=== PATIENT | female | born 1995 | race Two or more races ===

== ENCOUNTER 2016-02-28 00:10 | Observation (INO) | payer MEDICAID | END 2016-02-28 02:35 | disposition home or self-care (01) | DRG 566 | LOC: LDRP 00:10 | PROVIDERS: ADMIT Obstetrics & Gynecology; ATTEND Obstetrics & Gynecology | DX: O48.0 Post-term pregnancy (principal); O26.893 Other specified pregnancy related conditions, third trimester; R10.2 Pelvic and perineal pain; Z3A.40 40 weeks gestation of pregnancy | CPT/HCPCS: 59025; 76818; 81002; G0378 ==

== ENCOUNTER 2016-03-01 10:25 | Inpatient (IN) | payer MEDICAID ==
[~2016-03-01] VITALS: Ht 152.4 cm; Wt 62.1 kg
[2016-03-01] MEDS ORDERED: LACT. RINGERS/OXYTOCIN 20UNITS 1,000 ML IV SCH (10:36)
[2016-03-01] MEDS ORDERED: WITCH HAZEL-GLYCERIN PAD TOP PRN (10:45)
[2016-03-01] MEDS ORDERED: PHISODERM TOP SOLN 240ML BTL TOP PRN (10:45)
[2016-03-01] MEDS ORDERED: NALBUPHINE HCL 10 MG/1ml INJECTION IV PRN (10:45)
[2016-03-01] MEDS ORDERED: PROMETHAZINE HCL 25 MG/ML 1ML IV PRN (10:45)
[2016-03-01] MEDS ORDERED: LIDOCAINE 2%HCL (LOCAL ANESTH.) INJ 20ML MDV IJ ONE (10:45)
[2016-03-01] MEDS ORDERED: PENICILLIN G POT 5MIL/D5 50ML 50 ML IV ONE (10:45)
[2016-03-01] MEDS ORDERED: DERMOPLAST 60ML BOTTLE TOP PRN (10:45)
[2016-03-01 11:10] LABS: Urine RBC None Seen /hpf (0 - 4)
[2016-03-01 11:15] LABS: Basophils # (auto) 0 uL; Basophils % (auto) 0.2 % (0.0-2.0); Eosinophils # (auto) 0.1 uL; Eosinophils % (auto) 0.8 % (0.0-7.0); Hematocrit 35.2 % (36.0-46.0); Hemoglobin 11.4 g/dL (12.2-16.2); Lymphocytes # (auto) 2.1 uL; Lymphocytes % (auto) 24.3 % (10.0-50.0); Mean Corpuscular Hemoglobin 28.9 pg (28.0-32.0); Mean Corpuscular Hgb Conc. 32.5 g/dL (32.0-36.0); Mean Corpuscular Volume 89.1 fL (80.0-100.0); Mean Platelet Volume 7.7 fL (7.4-10.4); Monocytes # (auto) 0.7 uL; Neutrophils # (auto) 5.9 uL; Neutrophils % (auto) 66.7 % (37.0-80.0); Platelet Count (auto) 260 10^3/uL (140-450); Red Cell Distribution Width 12.7 % (11.6-16.0); White Blood Cell 8.8 10^3/uL (4.4-10.8)
[2016-03-01 11:29] LABS: Urine Bilirubin Negative (Negative); Urine Blood Negative /uL (Negative); Urine Color Yellow (Yellow); Urine Glucose Normal (Normal); Urine Ketone Negative (Negative); Urine Mucus FEW (None Seen); Urine Nitrite Negative (Negative); Urine Squamous Epithelial Cell FEW /hpf (<5); Urine Urobilinogen Normal (Negative); Urine pH 7.5 (5.0-8.0)
[2016-03-01] MEDS: ACCU-CHEK COMFORT CURVE STRIP VI SCH ×6 (11:41→22:00)
[2016-03-01 11:45] LABS: Albumin 3.1 g/dL (3.4-5.0); BUN/Creatinine Ratio 8.2; Bilirubin, Total 0.5 mg/dL (0.2-1.0); Calcium 9.4 mg/dL (8.5-10.1); Potassium 3.9 mmol/L (3.5-5.1); Total Protein 7.1 g/dL (6.4-8.2)
[2016-03-01 11:58] LABS: INR 0.97 (0.9-1.15); Partial Thromboplastin Time 24.7 sec (22.64-33.71)
[2016-03-01] MEDS: PENICILLIN G POTASSIUM 2,500,000 UNITS in D5W 5% 50 ML IV SCH ×3 (15:29→23:51)
[2016-03-01] MEDS: LACTATED RINGER'S 1,000 ML IV SCH (18:36)
[2016-03-02] MEDS: ACCU-CHEK COMFORT CURVE STRIP VI SCH ×4 (02:00→06:00)
[2016-03-02] MEDS: LACTATED RINGER'S 1,000 ML IV SCH ×4 (02:36→22:10)
[2016-03-02] MEDS: PENICILLIN G POTASSIUM 2,500,000 UNITS in D5W 5% 50 ML IV SCH ×3 (03:50→12:00)
[2016-03-02] MEDS ORDERED: BUTORPHANOL TARTRATE 2 MG/1 ML VIAL ONE (04:33)
[2016-03-02] MEDS: PROMETHAZINE HCL 25 MG/ML 1ML IV PRN ×2 (04:43→16:30)
[2016-03-02] MEDS ORDERED: BUTORPHANOL TARTRATE 2 MG/1 ML VIAL IM ONE (04:45)
[2016-03-02] MEDS ORDERED: TERBUTALINE SULFATE 1 MG/ML 1ML VIAL SC PRN (05:15)
[2016-03-02] MEDS ORDERED: LACT. RINGERS/OXYTOCIN 20UNITS 1,000 ML IV SCH (05:15)
[2016-03-02] MEDS ORDERED: LIDOCAINE HCL 2 %PF INJ 10ML AMP IJ ONE ×2 (07:00→12:52)
[2016-03-02] MEDS ORDERED: NALOXONE HCL 0.4 MG/ML VIAL IV ONE ×2 (07:00→09:15)
[2016-03-02] MEDS ORDERED: fentaNYL W ROPIVACAINE 150 ML EPI SCH ×2 (07:00→09:15)
[2016-03-02] MEDS ORDERED: fentaNYL CITRATE 100 MCG/2 ML VL IV ONE (07:00)
[2016-03-02] MEDS ORDERED: ePHEDrine SULFATE 50 MG/ML AMP IV ONE ×2 (07:00→09:15)
[2016-03-02] MEDS ORDERED: SODIUM BICARBONATE INFANT SYR 10 ML SYRG IV ONE (12:52)
[2016-03-02] MEDS ORDERED: OXYTOCIN 10 UNIT/ML 10ML VIAL ONE (12:52)
[2016-03-02] MEDS ORDERED: ceFAZolin 1GM VL ONE (12:52)
[2016-03-02] MEDS ORDERED: SODIUM CHLORIDE LOCK 20 ML ONE (12:54)
[2016-03-02] MEDS ORDERED: fentaNYL CITRATE 100 MCG/2 ML VL ONE (12:54)
[2016-03-02] MEDS ORDERED: ePHEDrine SULFATE 50 MG/ML AMP ONE (12:54)
[2016-03-02] MEDS ORDERED: MIDAZOLAM HCL 1MG/1ML-2 ML VIAL ONE (12:54)
[2016-03-02] MEDS ORDERED: MORPHINE SULF(PF) 0.5MG/ML 10ML VIAL ONE (12:54)
[2016-03-02] MEDS ORDERED: NALOXONE HCL 0.4 MG/ML VIAL IV PRN (14:30)
[2016-03-02] MEDS ORDERED: PROMETHAZINE HCL 25 MG/ML 1ML IM ONE (14:30)
[2016-03-02] MEDS ORDERED: ACCU-CHEK COMFORT CURVE STRIP VI ONE (14:30)
[2016-03-02] MEDS ORDERED: HYDROmorphone HCL 2 MG/ML VL IV PRN ×2 (14:30)
[2016-03-02] MEDS ORDERED: KETOROLAC TROMETH 30 MG/ML 1ML VIAL IV ONE (14:30)
[2016-03-02] MEDS ORDERED: diphenhdrAMINE HCL 50 MG/1 ML VL IV PRN (14:30)
[2016-03-02] MEDS ORDERED: ONDANSETRON HCL 4 MG/2 ML VIAL IV PRN (14:30)
[2016-03-02] MEDS ORDERED: OXYTOCIN 10UNIT/ML 1ML VIAL ONE (14:58)
[2016-03-02 15:40] VITALS: BP 132/77
[2016-03-02 19:00] VITALS: BP 120/77
[2016-03-02 20:00] VITALS: BP 118/68
[2016-03-02 21:00] VITALS: BP 114/64
[2016-03-02 22:00] VITALS: BP 118/64
[2016-03-02] MEDS: ceFAZolin 1GM/50ML D5W 50 ML IV SCH (22:10)
[2016-03-02 23:30] VITALS: BP 108/64
[2016-03-03] VITALS (8 sets, daily range): BP systolic 94–108; BP diastolic 49–64
[2016-03-03] MEDS: KETOROLAC TROMETH 30 MG/ML 1ML VIAL IV SCH ×2 (02:14→08:40)
[2016-03-03] MEDS: LACTATED RINGER'S 1,000 ML IV SCH ×2 (02:36→06:17)
[2016-03-03] MEDS: ceFAZolin 1GM/50ML D5W 50 ML IV SCH ×2 (05:40→14:00)
[2016-03-03 07:21] LABS: Basophils # (auto) 0 uL; Basophils % (auto) 0.2 % (0.0-2.0); Eosinophils # (auto) 0 uL; Eosinophils % (auto) 0.3 % (0.0-7.0); Hematocrit 27.2 % (36.0-46.0); Hemoglobin 8.8 g/dL (12.2-16.2); Lymphocytes # (auto) 1.9 uL; Lymphocytes % (auto) 15.8 % (10.0-50.0); Mean Corpuscular Hgb Conc. 32.5 g/dL (32.0-36.0); Mean Corpuscular Volume 89.1 fL (80.0-100.0); Monocytes # (auto) 0.9 uL; Monocytes % (auto) 7.7 % (0.0-12.0); Neutrophils # (auto) 9.1 uL; Platelet Count (auto) 192 10^3/uL (140-450); Red Cell Distribution Width 12.6 % (11.6-16.0)
[2016-03-03] MEDS: IBUPROFEN 800 MG TAB PO PRN (15:05)
[2016-03-03] MEDS ORDERED: BISACODYL 10 MG RECT SUPP PR PRN (15:15)
[2016-03-03] MEDS: HYDROcodone-ACET 5/325MG TAB PO PRN ×2 (16:45→22:25)
[2016-03-03] MEDS: SIMETHICONE 80 MG CHEWABLE TABLET PO SCH ×2 (17:58→21:52)
[2016-03-03] MEDS: DOCUSATE SOD 100 MG CAP PO SCH (21:52)
[2016-03-03] MEDS: FERROUS SULFATE 325 MG TAB PO SCH (21:52)
[2016-03-04] MEDS: IBUPROFEN 800 MG TAB PO PRN ×3 (00:17→18:56)
[2016-03-04 03:15] VITALS: BP 105/50
[2016-03-04] MEDS: SIMETHICONE 80 MG CHEWABLE TABLET PO SCH ×4 (05:29→22:30)
[2016-03-04] MEDS: HYDROcodone-ACET 5/325MG TAB PO PRN ×4 (06:01→22:37)
[2016-03-04 08:00] VITALS: BP 110/63
[2016-03-04] MEDS: FERROUS SULFATE 325 MG TAB PO SCH ×2 (10:00→22:30)
[2016-03-04] MEDS: DOCUSATE SOD 100 MG CAP PO SCH ×2 (10:00→22:30)
[2016-03-04] MEDS ORDERED: DOCUSATE CALCIUM 240 MG CAP PO SCH (10:00)
[2016-03-04 12:00] VITALS: BP 104/70
[2016-03-04 16:00] VITALS: BP 102/53
[2016-03-04 18:30] VITALS: BP 114/61
[2016-03-04 22:45] VITALS: BP 118/58
[2016-03-05 03:30] VITALS: BP 107/46
[2016-03-05 08:00] VITALS: BP 104/52
== END 2016-03-05 11:40 | disposition home or self-care (01) | DRG 540 ==
LOC: LDRP 10:25
PROVIDERS: ADMIT Specialist; ATTEND Specialist
PROC: 3E033VJ Introduction of Other Hormone into Peripheral Vein, Percutaneous Approach (ICD-10-PCS; 2016-03-02)
PROC: 10D00Z1 Extraction of Products of Conception, Low, Open Approach (ICD-10-PCS; principal; 2016-03-02 13:20)
PROC: 10907ZC Drainage of Amniotic Fluid, Therapeutic from Products of Conception, Via Natural or Artificial Opening (ICD-10-PCS; 2016-03-05)
DX: O48.0 Post-term pregnancy (principal); O34.33 Maternal care for cervical incompetence, third trimester; O24.420 Gestational diabetes mellitus in childbirth, diet controlled; O61.9 Failed induction of labor, unspecified; O76 Abnormality in fetal heart rate and rhythm complicating labor and delivery; O62.0 Primary inadequate contractions; O99.824 Streptococcus B carrier state complicating childbirth; O62.1 Secondary uterine inertia; Z3A.40 40 weeks gestation of pregnancy; Z37.0 Single live birth
CPT/HCPCS: 36415; 59025; 62282; 80053; 81001; 81002; 82948; 82962; 85025; 85049; 85610; 85730; 86850; 86900; 86901; 96361; 96365; 96366; 96374; J0690; J1885; J2250; J2540; J2590; J3010; J7060

== ENCOUNTER 2018-03-22 12:11 | Emergency (ER) | payer MEDICAID ==
[2018-03-22 12:59] VITALS: BP 109/58
== END 2018-03-22 13:55 | disposition home or self-care (01) ==
LOC: ER 12:18
DX: O9A.211 Injury, poisoning and certain other consequences of external causes complicating pregnancy, first trimester (principal); R10.30 Lower abdominal pain, unspecified; V49.49XA Driver injured in collision with other motor vehicles in traffic accident, initial encounter; Y93.89 Activity, other specified; Y92.89 Other specified places as the place of occurrence of the external cause; Y99.8 Other external cause status; Z3A.09 9 weeks gestation of pregnancy
CPT/HCPCS: 76801

== ENCOUNTER → 2018-04-19 | Day surgery (SDC) | payer MEDICAID ==
[~2018-04-19] VITALS: Ht 152.4 cm; Wt 57.2 kg
[~2018-04-19] MED LIST: DEXAMETHASONE SOD PHOS 10MG/1ML VIAL INJ ONE; HYDROmorphone HCL 2 MG/ML VL IV PRN; KETOROLAC TROMETH 30 MG/ML 1ML VIAL IV ONE; KETOROLAC TROMETH 30 MG/ML 1ML VIAL ONE; LABETALOL HCL 5 MG/ML 4ML SYRINGE IV PRN; LACTATED RINGER'S 1,000 ML IV SCH; MIDAZOLAM HCL 1MG/1ML-2 ML VIAL IV PRN; MIDAZOLAM HCL 1MG/1ML-2 ML VIAL ONE; MORPHINE SULFATE 4 MG/ML SYR/VIAL IV ONE; MORPHINE SULFATE 4 MG/ML SYR/VIAL IV PRN; ONDANSETRON HCL 4 MG/2 ML VIAL IV ONE; ONDANSETRON HCL 4 MG/2 ML VIAL IV PRN; OXYTOCIN 10UNIT/ML 1ML VIAL IV ONE; PROPOFOL 10 MG/ML 20 ML IV ONE; ceFAZolin 1GM/50ML 50 ML IV ONE; ePHEDrine SULFATE 50 MG/ML AMP IV PRN; fentaNYL CITRATE 100 MCG/2 ML VL ONE
[2018-04-19 08:53] VITALS: BP 132/68
== END | disposition home or self-care (01) ==
LOC: SUR 06:16
PROVIDERS: ATTEND Specialist
DX: O02.1 Missed abortion (principal); Z98.890 Other specified postprocedural states
CPT/HCPCS: 59820; J2590; J3010; 86850; 86900; 86901; J0690; J1100; J1885; J2250; J2704

== ENCOUNTER 2018-04-20 11:53 | Emergency (ER) | payer MEDICAID ==
[~2018-04-20] VITALS: Ht 152.4 cm; Wt 57.2 kg
[2018-04-20 13:04] LABS: Urine Bacteria NONE SEEN /hpf (None Seen); Urine Blood 2+ /uL (Negative); Urine Mucus FEW (None Seen); Urine Specific Gravity 1.015 (1.001-1.035); Urine WBC 8 /hpf (0 - 5)
[2018-04-20 15:12] LABS: Basophils # (auto) 0 uL; Basophils % (auto) 0.2 % (0.0-2.0); Eosinophils # (auto) 0 uL; Eosinophils % (auto) 0.3 % (0.0-7.0); Hematocrit 34.9 % (36.0-46.0); Hemoglobin 11.8 g/dL (12.2-16.2); Lymphocytes # (auto) 3.1 uL; Lymphocytes % (auto) 34.2 % (10.0-50.0); Mean Corpuscular Hemoglobin 30.5 pg (28.0-32.0); Mean Corpuscular Hgb Conc. 33.8 g/dL (32.0-36.0); Mean Corpuscular Volume 90.3 fL (80.0-100.0); Monocytes # (auto) 0.6 uL; Monocytes % (auto) 6.9 % (0.0-12.0); Neutrophils # (auto) 5.3 uL; Neutrophils % (auto) 58.4 % (37.0-80.0); Platelet Count (auto) 225 10^3/uL (140-450); Red Blood Cells 3.86 10^6/uL (4.0-5.20); Red Cell Distribution Width 12.8 % (11.8-14.3)
[2018-04-20 15:16] LABS: Albumin 3.3 g/dL (3.4-5.0); Anion Gap 6 (5-15); Blood Urea Nitrogen 5 mg/dL (7-18); Calcium 8.3 mg/dL (8.5-10.1); Carbon Dioxide 25 mmol/L (21-32); Chloride 108 mmol/L (98-107); Glucose 91 mg/dL (74-106); Potassium 3.7 mmol/L (3.5-5.1); Sodium 139 mmol/L (136-145)
[2018-04-20 15:21] LABS: Alanine Aminotransferase 21 U/L (13-56); Alkaline Phosphatase 67 U/L (45-117); Aspartate Aminotransferase 13 U/L (15-37); BUN/Creatinine Ratio 8.9; Bilirubin, Total 0.2 mg/dL (0.2-1.0); GFR African American 176 mL/min; GFR Non-African American 145 mL/min
[2018-04-20 15:57] VITALS: BP 115/72
== END 2018-04-20 15:40 | disposition home or self-care (01) ==
LOC: ER 12:01
DX: R07.89 Other chest pain (principal); N39.0 Urinary tract infection, site not specified; F17.210 Nicotine dependence, cigarettes, uncomplicated
CPT/HCPCS: 36415; 71046; 80053; 81001; 84484; 85025; 93005

== ENCOUNTER 2020-12-12 07:16 | Emergency (ER) | payer MEDICAID ==
[~2020-12-12] VITALS: Ht 165.1 cm; Wt 56.7 kg
[2020-12-12 07:55] LABS: Urine Bacteria NONE SEEN /hpf (None Seen); Urine Blood 2+ /uL (Negative); Urine Specific Gravity 1.016 (1.001-1.035); Urine WBC 2 /hpf (0 - 5)
[2020-12-12 09:54] VITALS: BP 139/58
[2020-12-12] MEDS ORDERED: ACETAMINOPHEN/CODEINE#3 (300/30mg) TAB PO ONE (10:00)
[2020-12-12] MEDS ORDERED: ONDANSETRON ODT 4 MG TAB PO ONE (10:00)
[2020-12-12 10:14] LABS: Basophils # (auto) 0 10 ^3/uL (0-0.2); Basophils % (auto) 0.1 % (0.0-2.0); Eosinophils # (auto) 0 10 ^3/uL (0-0.8); Hematocrit 40.4 % (36.0-46.0); Hemoglobin 13.9 g/dL (12.2-16.2); Lymphocytes # (auto) 0.6 10 ^3/uL (0.4-5.4); Lymphocytes % (auto) 4.8 % (10.0-50.0); Mean Corpuscular Hemoglobin 31.5 pg (28.0-32.0); Mean Corpuscular Hgb Conc. 34.3 g/dL (32.0-36.0); Mean Corpuscular Volume 91.7 fL (80.0-100.0); Monocytes # (auto) 0.7 10 ^3/uL (0-1.3); Monocytes % (auto) 5.5 % (0.0-12.0); Neutrophils # (auto) 12.1 10 ^3/uL (1.6-8.6); Neutrophils % (auto) 89.6 % (37.0-80.0); Red Cell Distribution Width 12.5 % (11.8-14.3); White Blood Cell 13.5 10^3/uL (4.4-10.8)
[2020-12-12 10:16] LABS: Potassium 4.1 mmol/L (3.5-5.1)
[2020-12-12 10:20] LABS: BUN/Creatinine Ratio 6.1; Bilirubin, Total 0.4 mg/dL (0.2-1.0); Total Protein 8.2 g/dL (6.4-8.2)
== END 2020-12-12 12:41 | disposition home or self-care (01) ==
LOC: ER 07:16
DX: N20.0 Calculus of kidney (principal); F12.10 Cannabis abuse, uncomplicated; Z32.02 Encounter for pregnancy test, result negative
CPT/HCPCS: 36415; 74176; 80053; 81001; 81025; 83690; 85025; 99284; Q0162

== ENCOUNTER 2021-01-17 09:39 | Emergency (ER) | payer MEDICAID ==
[~2021-01-17] VITALS: Ht 152.4 cm; Wt 53.5 kg
[2021-01-17 11:01] LABS: Basophils # (auto) 0 10 ^3/uL (0-0.2); Basophils % (auto) 0.3 % (0.0-2.0); Eosinophils # (auto) 0 10 ^3/uL (0-0.8); Eosinophils % (auto) 0.2 % (0.0-7.0); Hematocrit 38.9 % (36.0-46.0); Hemoglobin 13.1 g/dL (12.2-16.2); Lymphocytes # (auto) 1.9 10 ^3/uL (0.4-5.4); Lymphocytes % (auto) 14.3 % (10.0-50.0); Mean Corpuscular Hemoglobin 30.7 pg (28.0-32.0); Mean Corpuscular Hgb Conc. 33.8 g/dL (32.0-36.0); Monocytes # (auto) 1.4 10 ^3/uL (0-1.3); Monocytes % (auto) 10.3 % (0.0-12.0); Neutrophils # (auto) 9.8 10 ^3/uL (1.6-8.6); Neutrophils % (auto) 74.9 % (37.0-80.0); Red Blood Cells 4.27 10^6/uL (4.0-5.20); White Blood Cell 13.1 10^3/uL (4.4-10.8)
[2021-01-17 11:31] LABS: Albumin 3.8 g/dL (3.4-5.0); Calcium 8.9 mg/dL (8.5-10.1); Potassium 3.9 mmol/L (3.5-5.1)
[2021-01-17 11:45] LABS: BUN/Creatinine Ratio 7.6; Bilirubin, Total 0.5 mg/dL (0.2-1.0); Total Protein 8.5 g/dL (6.4-8.2)
[2021-01-17] MEDS ORDERED: SODIUM CHLORIDE 0.9% 1,000 ML IV ONE (12:30)
[2021-01-17 13:22] LABS: Urine Bacteria MOD /hpf (None Seen); Urine Blood 2+ /uL (Negative); Urine Hyaline Cast MOD /lpf (0 - 2); Urine Mucus FEW (None Seen); Urine Specific Gravity 1.016 (1.001-1.035); Urine WBC 22 /hpf (0 - 5)
[2021-01-17 14:09] VITALS: BP 122/68
== END 2021-01-17 14:12 | disposition home or self-care (01) ==
LOC: ER 09:39
DX: O26.891 Other specified pregnancy related conditions, first trimester (principal); R10.84 Generalized abdominal pain; R53.1 Weakness; O99.321 Drug use complicating pregnancy, first trimester; F12.10 Cannabis abuse, uncomplicated; Z3A.01 Less than 8 weeks gestation of pregnancy
CPT/HCPCS: 36415; 76705; 76801; 76817; 80053; 81001; 84702; 85025

== ENCOUNTER 2021-02-02 20:08 | Emergency (ER) | payer MEDICAID ==
[~2021-02-02] VITALS: Ht 152.4 cm; Wt 52.6 kg
[2021-02-02 20:40] LABS: Urine WBC None Seen /hpf (0 - 5)
[2021-02-02 20:49] LABS: Urine Bacteria FEW /hpf (None Seen); Urine Blood TRACE /uL (Negative); Urine Mucus FEW (None Seen); Urine Specific Gravity 1.008 (1.001-1.035)
[2021-02-02 21:32] LABS: Basophils # (auto) 0 10 ^3/uL (0-0.2); Basophils % (auto) 0.4 % (0.0-2.0); Eosinophils # (auto) 0 10 ^3/uL (0-0.8); Eosinophils % (auto) 0.6 % (0.0-7.0); Hematocrit 32.3 % (36.0-46.0); Hemoglobin 11.3 g/dL (12.2-16.2); Lymphocytes # (auto) 2.2 10 ^3/uL (0.4-5.4); Lymphocytes % (auto) 26.3 % (10.0-50.0); Mean Corpuscular Hemoglobin 31.1 pg (28.0-32.0); Mean Corpuscular Volume 88.7 fL (80.0-100.0); Monocytes # (auto) 0.7 10 ^3/uL (0-1.3); Monocytes % (auto) 7.9 % (0.0-12.0); Neutrophils # (auto) 5.3 10 ^3/uL (1.6-8.6); Neutrophils % (auto) 64.8 % (37.0-80.0); Nucleated Red Blood Cells % 0.1 %; Red Blood Cells 3.64 10^6/uL (4.0-5.20); Red Cell Distribution Width 13.3 % (11.8-14.3); White Blood Cell 8.2 10^3/uL (4.4-10.8)
[2021-02-02 21:49] LABS: Albumin 3.4 g/dL (3.4-5.0); BUN/Creatinine Ratio 8.6; Calcium 8.6 mg/dL (8.5-10.1); Potassium 3.9 mmol/L (3.5-5.1)
[2021-02-02 21:52] LABS: Bilirubin, Total 0.2 mg/dL (0.2-1.0); Total Protein 6.5 g/dL (6.4-8.2)
[2021-02-03 02:38] VITALS: BP 141/65
== END 2021-02-03 03:59 | disposition left against medical advice (07) ==
LOC: ER 20:08
DX: O20.8 Other hemorrhage in early pregnancy (principal); Z3A.01 Less than 8 weeks gestation of pregnancy
CPT/HCPCS: 36415; 76801; 80053; 81001; 84702; 85025

== ENCOUNTER 2021-05-13 13:20 | Observation (INO) | payer MEDICAID | END 2021-05-13 15:31 | disposition home or self-care (01) | LOC: LDRP 13:20 | PROVIDERS: ADMIT Obstetrics & Gynecology; ATTEND Obstetrics & Gynecology | DX: O26.892 Other specified pregnancy related conditions, second trimester (principal); R55 Syncope and collapse; R11.0 Nausea; Z3A.22 22 weeks gestation of pregnancy | CPT/HCPCS: 59025; 81002; 82948; 82962; 94760; G0378 ==

== ENCOUNTER 2021-07-28 08:21 | Inpatient (IN) | payer MEDICAID ==
[~2021-07-28] VITALS: Ht 152.4 cm; Wt 62.0 kg
[2021-07-28] MEDS ORDERED: SODIUM CHLORIDE 0.9% 1,000 ML IVB ONE (08:45)
[2021-07-28 09:03] LABS: Urine Bacteria FEW /hpf (None Seen); Urine Blood Negative /uL (Negative); Urine Mucus FEW (None Seen); Urine Specific Gravity 1.018 (1.001-1.035); Urine WBC 22 /hpf (0 - 5)
[2021-07-28 09:22] LABS: Basophils # (auto) 0.1 10 ^3/uL (0-0.2); Basophils % (auto) 1.5 % (0.0-2.0); Eosinophils # (auto) 0 10 ^3/uL (0-0.8); Hematocrit 30.5 % (36.0-46.0); Hemoglobin 10.8 g/dL (12.2-16.2); Lymphocytes # (auto) 0.8 10 ^3/uL (0.4-5.4); Lymphocytes % (auto) 7.9 % (10.0-50.0); Mean Corpuscular Hemoglobin 32.1 pg (28.0-32.0); Mean Corpuscular Hgb Conc. 35.4 g/dL (32.0-36.0); Mean Corpuscular Volume 90.7 fL (80.0-100.0); Monocytes % (auto) 10.2 % (0.0-12.0); Neutrophils # (auto) 7.8 10 ^3/uL (1.6-8.6); Neutrophils % (auto) 80.4 % (37.0-80.0); Red Blood Cells 3.37 10^6/uL (4.0-5.20); Red Cell Distribution Width 12.9 % (11.8-14.3); White Blood Cell 9.7 10^3/uL (4.4-10.8)
[2021-07-28 09:36] LABS: Albumin 2.7 g/dL (3.4-5.0); Calcium 8.5 mg/dL (8.5-10.1); Potassium 3.6 mmol/L (3.5-5.1)
[2021-07-28 09:40] LABS: Bilirubin, Total 0.4 mg/dL (0.2-1.0); Total Protein 6.6 g/dL (6.4-8.2)
[2021-07-28] MEDS ORDERED: ONDANSETRON HCL 4 MG/2 ML VIAL IV ONE ×2 (10:45→20:00)
[2021-07-28] MEDS ORDERED: ACETAMINOPHEN 325 MG TAB PO ONE (11:15)
[2021-07-28] MEDS ORDERED: ACETAMINOPHEN 325 MG TAB PO PRN (14:00)
[2021-07-28] MEDS ORDERED: ACETAMINOPHEN 500 MG TAB PO PRN (14:15)
[2021-07-28] MEDS: SODIUM CHLORIDE 0.9% 1,000 ML IV SCH (14:36)
[2021-07-28 15:08] VITALS: BP 107/59
[2021-07-28 15:27] LABS: Basophils # (auto) 0 10 ^3/uL (0-0.2); Basophils % (auto) 0.7 % (0.0-2.0); Eosinophils # (auto) 0 10 ^3/uL (0-0.8); Hematocrit 30.1 % (36.0-46.0); Hemoglobin 10.6 g/dL (12.2-16.2); Lymphocytes # (auto) 0.8 10 ^3/uL (0.4-5.4); Lymphocytes % (auto) 13.1 % (10.0-50.0); Mean Corpuscular Hemoglobin 32.4 pg (28.0-32.0); Mean Corpuscular Hgb Conc. 35.2 g/dL (32.0-36.0); Mean Corpuscular Volume 92.1 fL (80.0-100.0); Monocytes # (auto) 0.8 10 ^3/uL (0-1.3); Monocytes % (auto) 11.7 % (0.0-12.0); Neutrophils # (auto) 4.8 10 ^3/uL (1.6-8.6); Neutrophils % (auto) 74.5 % (37.0-80.0); Nucleated Red Blood Cells % 0.1 %; Red Blood Cells 3.26 10^6/uL (4.0-5.20); Red Cell Distribution Width 13.1 % (11.8-14.3); White Blood Cell 6.4 10^3/uL (4.4-10.8)
[2021-07-28 15:41] LABS: INR 1.03 (0.9-1.15); Partial Thromboplastin Time 21.9 sec (23.6-33.0)
[2021-07-28 15:42] LABS: Albumin 2.4 g/dL (3.4-5.0); Potassium 3.3 mmol/L (3.5-5.1)
[2021-07-28 15:50] LABS: BUN/Creatinine Ratio 8.2; Bilirubin, Total 0.5 mg/dL (0.2-1.0); CRP High Sensitivity 5.78 mg/dL (< 0.3); Total Protein 5.9 g/dL (6.4-8.2)
[2021-07-28 15:55] LABS: Thyroid Stimulating Hormone 0.53 uIU/mL (0.358-3.74)
[2021-07-28 17:43] LABS: Magnesium 1.8 mg/dL (1.6-2.6)
[2021-07-28 19:00] LABS: Phosphorus 0.4 mg/dL (2.5-4.90)
[2021-07-28] MEDS ORDERED: MAGNESIUM SULFATE 1GM/100ML 100 ML IV ONE (19:15)
[2021-07-28] MEDS ORDERED: POTASSIUM PHOSPHATE 44 MEQ in D5W 5% 250 ML IV ONE (19:15)
[2021-07-28] MEDS: BUDESONIDE (INHALATION) 180 MCG IH IN SCH (19:42)
[2021-07-28] MEDS ORDERED: ONDANSETRON HCL 4 MG/2 ML VIAL IV PRN (20:00)
[2021-07-28] MEDS ORDERED: FAMOTIDINE (10MG/ML) 2ML VL IV ONE (20:00)
[2021-07-28] MEDS: predniSONE 20 MG TAB PO SCH (21:28)
[2021-07-28] MEDS: ENOXAPARIN SOD 40 MG/0.4 ML SYRINGE SC SCH (21:29)
[2021-07-28] MEDS: ceFAZolin 1GM/50ML 50 ML IV SCH (21:31)
[2021-07-28 22:41] VITALS: BP 104/40
[2021-07-29 04:55] VITALS: BP 98/49
[2021-07-29] MEDS: ceFAZolin 1GM/50ML 50 ML IV SCH (05:20)
[2021-07-29] MEDS: SODIUM CHLORIDE 0.9% 1,000 ML IV SCH (06:40)
[2021-07-29] MEDS: BUDESONIDE (INHALATION) 180 MCG IH IN SCH (06:55)
[2021-07-29 07:01] LABS: Hematocrit 27.1 % (36.0-46.0); Hemoglobin 9.7 g/dL (12.2-16.2); Mean Corpuscular Hemoglobin 32.8 pg (28.0-32.0); Mean Corpuscular Hgb Conc. 35.8 g/dL (32.0-36.0); Mean Corpuscular Volume 91.5 fL (80.0-100.0); Red Blood Cells 2.96 10^6/uL (4.0-5.20); Red Cell Distribution Width 13.2 % (11.8-14.3); White Blood Cell 5.3 10^3/uL (4.4-10.8)
[2021-07-29 07:04] LABS: Basophils % (manual) 0 (0.0-2.0); Blast Cells 0; Eosinophils % (manual) 0 (0-7); Metamyelocytes % 0; Promyelocytes % 0; Reactive Lymphocytes 0
[2021-07-29 07:12] LABS: INR 1.02 (0.9-1.15); Partial Thromboplastin Time 29.9 sec (23.6-33.0)
[2021-07-29 07:15] LABS: Magnesium 2.1 mg/dL (1.6-2.6); Potassium 4.1 mmol/L (3.5-5.1)
[2021-07-29 07:19] LABS: Urine Bacteria FEW /hpf (None Seen); Urine Blood Negative /uL (Negative); Urine Mucus FEW (None Seen); Urine Specific Gravity 1.014 (1.001-1.035); Urine WBC 33 /hpf (0 - 5)
[2021-07-29 07:22] LABS: Albumin 2.4 g/dL (3.4-5.0); Bilirubin, Total 0.3 mg/dL (0.2-1.0); Calcium 7.9 mg/dL (8.5-10.1); Phosphorus 4.2 mg/dL (2.5-4.90); Total Protein 5.9 g/dL (6.4-8.2); Uric Acid 2.8 mg/dL (2.6-6.0)
[2021-07-29 07:43] LABS: Band Neutrophils % (manual) 3; Lymphocytes % (manual) 14 (10.0-50.0); Monocytes % (manual) 7 (0-12); Myelocytes % 1
[2021-07-29 08:00] VITALS: BP 100/54
[2021-07-29 08:00] LABS: Alcohol, Urine < 3.0 mg/dL (0-10); Amphetamine Screen, Urine NEGATIVE (NEGATIVE); Barbiturate Scree,Urine NEGATIVE (NEGATIVE); Benzodiazephine Screen, Urine NEGATIVE (NEGATIVE); Cannabinoid Screen, Urine NEGATIVE (NEGATIVE); Cocaine Screen, Urine NEGATIVE (NEGATIVE); Opiate Scree,Urine NEGATIVE (NEGATIVE); Phencyclidine Screen, Urine NEGATIVE (NEGATIVE); Protein, Urine 20.3 mg/dL (0.0-11.9)
[2021-07-29] MEDS ORDERED: NEUTRA-PHOS TABLET PO SCH (08:00)
[2021-07-29] MEDS: ENOXAPARIN SOD 40 MG/0.4 ML SYRINGE SC SCH (08:40)
[2021-07-29] MEDS: predniSONE 20 MG TAB PO SCH (08:40)
[2021-07-29 09:00] VITALS: BP 100/54
[2021-07-29] MEDS ORDERED: ASCORBIC ACID 1,000 MG TAB PO SCH (10:00)
[2021-07-29] MEDS ORDERED: FAMOTIDINE (10MG/ML) 2ML VL IV SCH (10:00)
[2021-07-29] MEDS ORDERED: CHOLECALCIFEROL (VITD3) 2,000 UNIT CAP/TAB PO SCH (10:00)
[2021-07-29] MEDS ORDERED: ZINC SULFATE 220mg CAP or TAB PO SCH (10:00)
[2021-07-29 13:42] VITALS: BP 100/54
== END 2021-07-29 14:30 | disposition home or self-care (01) | DRG 566 ==
LOC: ER 08:21 → TELE 13:30 → TELE-EAST 18:36
PROVIDERS: ADMIT Hospitalist; ATTEND Internal Medicine
DX: O98.513 Other viral diseases complicating pregnancy, third trimester (principal); J12.82 Pneumonia due to coronavirus disease 2019; D68.59 Other primary thrombophilia; U07.1 COVID-19; O99.113 Other diseases of the blood and blood-forming organs and certain disorders involving the immune mechanism complicating pregnancy, third trimester; O44.03 Complete placenta previa NOS or without hemorrhage, third trimester; O34.219 Maternal care for unspecified type scar from previous cesarean delivery; O99.513 Diseases of the respiratory system complicating pregnancy, third trimester; D72.810 Lymphocytopenia; D72.828 Other elevated white blood cell count; O21.9 Vomiting of pregnancy, unspecified; E55.9 Vitamin D deficiency, unspecified; Z3A.34 34 weeks gestation of pregnancy; Z87.442 Personal history of urinary calculi; Z83.3 Family history of diabetes mellitus
CPT/HCPCS: 36415; 76805; 76817; 76818; 80053; 80061; 80307; 81001; 82306; 82550; 82728; 83036; 83605; 83615; 83690; 83735; 83880; 84100; 84156; 84439; 84443; 84484; 84550; 84702; 85007; 85025; 85027; 85379; 85610; 85652; 85730; 86141; 86710; 87040; 87086; 93005; 93970; 94640; 96361; 96374; G0378; J0690; J2405; J3490; J7060

== ENCOUNTER 2021-08-11 03:24 | Observation (INO) | payer MEDICAID ==
[2021-08-11] MEDS ORDERED: PREN-96 PO ×2 (14:50)
== END 2021-08-11 15:02 | disposition home or self-care (01) ==
LOC: UNDOADMOB 03:24 → LDRP 03:24 → UNDOADMOB 13:22 → LDRP 13:24
PROVIDERS: ADMIT Obstetrics & Gynecology; ATTEND Obstetrics & Gynecology
DX: O24.419 Gestational diabetes mellitus in pregnancy, unspecified control (principal); O26.893 Other specified pregnancy related conditions, third trimester; N89.8 Other specified noninflammatory disorders of vagina; Z3A.35 35 weeks gestation of pregnancy
CPT/HCPCS: 59025; 76818; 81002; 82962; 94760; G0378

== ENCOUNTER → 2021-08-16 | Outpatient (CLI) | payer MEDICAID ==
[~2021-08-16] MED LIST changes: -DEXAMETHASONE SOD PHOS 10MG/1ML VIAL INJ ONE; -HYDROmorphone HCL 2 MG/ML VL IV PRN; -KETOROLAC TROMETH 30 MG/ML 1ML VIAL IV ONE; -KETOROLAC TROMETH 30 MG/ML 1ML VIAL ONE; -LABETALOL HCL 5 MG/ML 4ML SYRINGE IV PRN; -LACTATED RINGER'S 1,000 ML IV SCH; -MIDAZOLAM HCL 1MG/1ML-2 ML VIAL IV PRN; -MIDAZOLAM HCL 1MG/1ML-2 ML VIAL ONE; -MORPHINE SULFATE 4 MG/ML SYR/VIAL IV ONE; -MORPHINE SULFATE 4 MG/ML SYR/VIAL IV PRN; -ONDANSETRON HCL 4 MG/2 ML VIAL IV ONE; -ONDANSETRON HCL 4 MG/2 ML VIAL IV PRN; -OXYTOCIN 10UNIT/ML 1ML VIAL IV ONE; +PREN-96 PO; -PROPOFOL 10 MG/ML 20 ML IV ONE; -ceFAZolin 1GM/50ML 50 ML IV ONE; -ePHEDrine SULFATE 50 MG/ML AMP IV PRN; -fentaNYL CITRATE 100 MCG/2 ML VL ONE
[2021-08-16 10:09] LABS: Basophils # (auto) 0 10 ^3/uL (0-0.2); Basophils % (auto) 0.4 % (0.0-2.0); Eosinophils # (auto) 0.1 10 ^3/uL (0-0.8); Eosinophils % (auto) 1.4 % (0.0-7.0); Hematocrit 33.1 % (36.0-46.0); Lymphocytes # (auto) 2.3 10 ^3/uL (0.4-5.4); Lymphocytes % (auto) 32.5 % (10.0-50.0); Mean Corpuscular Hemoglobin 30.6 pg (28.0-32.0); Mean Corpuscular Hgb Conc. 33.3 g/dL (32.0-36.0); Monocytes # (auto) 0.6 10 ^3/uL (0-1.3); Monocytes % (auto) 9.1 % (0.0-12.0); Neutrophils % (auto) 56.6 % (37.0-80.0); Red Blood Cells 3.61 10^6/uL (4.0-5.20)
[2021-08-17 07:06] LABS: RPR Non Reactive (Non Reactive)
== END | disposition home or self-care (01) ==
LOC: LAB 09:10
PROVIDERS: ATTEND Obstetrics & Gynecology
DX: Z34.80 Encounter for supervision of other normal pregnancy, unspecified trimester (principal)
CPT/HCPCS: 36415; 85025; 86592

== ENCOUNTER 2021-08-18 11:03 | Observation (INO) | payer MEDICAID ==
[2021-08-18] MEDS ORDERED: TERBUTALINE SULFATE 1 MG/ML 1ML VIAL SC ONE (14:15)
== END 2021-08-18 14:54 | disposition home or self-care (01) ==
LOC: UNDOADMOB 13:13 → LDRP 13:13
PROVIDERS: ADMIT Obstetrics & Gynecology; ATTEND Obstetrics & Gynecology
DX: O24.419 Gestational diabetes mellitus in pregnancy, unspecified control (principal); Z3A.36 36 weeks gestation of pregnancy
CPT/HCPCS: 59025; 76818; 81002; 82948; 82962; 94760; G0378

== ENCOUNTER 2021-08-25 08:44 | Observation (INO) | payer MEDICAID ==
[~2021-08-25] VITALS: Ht 152.4 cm; Wt 63.5 kg
[2021-08-25] MEDS ORDERED: TERBUTALINE SULFATE 1 MG/ML 1ML VIAL SC ONE (14:30)
== END 2021-08-25 14:46 | disposition home or self-care (01) ==
LOC: LDRP 11:23 → UNDOADMOB 11:23 → LDRP 11:31 → UNDODISOB 14:46
PROVIDERS: ADMIT Obstetrics & Gynecology; ATTEND Obstetrics & Gynecology
DX: O60.03 Preterm labor without delivery, third trimester (principal); O24.419 Gestational diabetes mellitus in pregnancy, unspecified control; Z3A.37 37 weeks gestation of pregnancy
CPT/HCPCS: 59025; 76818; 81002; 82948; 82962; 94760; G0378

== ENCOUNTER 2021-09-01 10:33 | Observation (INO) | payer MEDICAID | END 2021-09-01 14:40 | disposition home or self-care (01) | LOC: LDRP 13:00 → UNDOADMOB 13:00 → LDRP 13:53 → UNDODISOB 14:40 | PROVIDERS: ADMIT Obstetrics & Gynecology; ATTEND Obstetrics & Gynecology | DX: O24.419 Gestational diabetes mellitus in pregnancy, unspecified control (principal); O62.9 Abnormality of forces of labor, unspecified; O26.893 Other specified pregnancy related conditions, third trimester; N89.8 Other specified noninflammatory disorders of vagina; Z3A.38 38 weeks gestation of pregnancy | CPT/HCPCS: 59025; 76818; 81002; 82948; 82962; G0378 ==

== ENCOUNTER 2021-09-07 04:35 | Inpatient (IN) | payer MEDICAID ==
[2021-09-05 11:19] LABS: Urine Bacteria FEW /hpf (None Seen); Urine Blood Negative /uL (Negative); Urine WBC 1 /hpf (0 - 5)
[2021-09-05 11:24] LABS: Alcohol, Urine < 3.0 mg/dL (0-10); Amphetamine Screen, Urine NEGATIVE (NEGATIVE); Barbiturate Scree,Urine NEGATIVE (NEGATIVE); Benzodiazephine Screen, Urine NEGATIVE (NEGATIVE); Cannabinoid Screen, Urine NEGATIVE (NEGATIVE); Cocaine Screen, Urine NEGATIVE (NEGATIVE); Opiate Scree,Urine NEGATIVE (NEGATIVE); Phencyclidine Screen, Urine NEGATIVE (NEGATIVE)
[2021-09-05 11:30] LABS: Albumin 2.7 g/dL (3.4-5.0); BUN/Creatinine Ratio 7.7; Calcium 8.5 mg/dL (8.5-10.1); Potassium 3.7 mmol/L (3.5-5.1)
[2021-09-05 11:34] LABS: Basophils # (auto) 0 10 ^3/uL (0-0.2); Basophils % (auto) 0.3 % (0.0-2.0); Eosinophils # (auto) 0.1 10 ^3/uL (0-0.8); Eosinophils % (auto) 1.5 % (0.0-7.0); Hematocrit 32.5 % (36.0-46.0); Hemoglobin 10.9 g/dL (12.2-16.2); Lymphocytes # (auto) 2.1 10 ^3/uL (0.4-5.4); Lymphocytes % (auto) 30.8 % (10.0-50.0); Mean Corpuscular Hemoglobin 30.2 pg (28.0-32.0); Mean Corpuscular Hgb Conc. 33.6 g/dL (32.0-36.0); Mean Corpuscular Volume 89.9 fL (80.0-100.0); Monocytes # (auto) 0.6 10 ^3/uL (0-1.3); Monocytes % (auto) 8.6 % (0.0-12.0); Neutrophils # (auto) 3.9 10 ^3/uL (1.6-8.6); Neutrophils % (auto) 58.8 % (37.0-80.0); Red Blood Cells 3.62 10^6/uL (4.0-5.20); Red Cell Distribution Width 13.6 % (11.8-14.3); White Blood Cell 6.7 10^3/uL (4.4-10.8)
[2021-09-05 11:39] LABS: Bilirubin, Total 0.4 mg/dL (0.2-1.0); Total Protein 6.4 g/dL (6.4-8.2)
[2021-09-05 11:41] LABS: INR 0.92 (0.9-1.15); Partial Thromboplastin Time 24.9 sec (24.6-33.4)
[2021-09-06 06:07] LABS: RPR Non Reactive (Non Reactive)
[~2021-09-07] VITALS: Ht 152.4 cm; Wt 64.0 kg
[2021-09-07] VITALS (14 sets, daily range): BP systolic 95–137; BP diastolic 45–75
[2021-09-07] MEDS ORDERED: ceFAZolin 1GM/50ML 50 ML IV ONE (04:45)
[2021-09-07] MEDS ORDERED: LACTATED RINGER'S 1,000 ML IV ONE (04:45)
[2021-09-07] MEDS: LACTATED RINGER'S 1,000 ML IV SCH ×3 (04:45→13:48)
[2021-09-07] MEDS ORDERED: TETRACAINE 1% INJ 2 ML VIAL IJ ONE (06:50)
[2021-09-07] MEDS ORDERED: EPINEPHrine HCL 1 MG/10 ML SYRG ONE (07:05)
[2021-09-07] MEDS ORDERED: MIDAZOLAM HCL 2MG/2ML 2ml VIAL (1mg/ml) ONE (07:05)
[2021-09-07] MEDS ORDERED: ONDANSETRON HCL 4 MG/2 ML VIAL ONE (07:05)
[2021-09-07] MEDS ORDERED: fentaNYL CITRATE 100 MCG/2 ML VL ONE (07:05)
[2021-09-07] MEDS ORDERED: oxyTOCIN 10 UNIT/ML 10ML VIAL ONE (07:05)
[2021-09-07] MEDS ORDERED: BUPIVACAINE/DEXTROSE MPF 0.75% 2 ML AMP IT ONE (07:05)
[2021-09-07] MEDS ORDERED: ePHEDrine SULFATE 50 MG/ML AMP ONE (07:05)
[2021-09-07] MEDS ORDERED: SODIUM CHLORIDE LOCK 10 ML ONE (07:05)
[2021-09-07] MEDS ORDERED: MORPHINE SULF PF 5 MG/10 ML VIAL ONE (07:05)
[2021-09-07] MEDS ORDERED: fentaNYL CITRATE 100 MCG/2 ML VL IV PRN (08:30)
[2021-09-07] MEDS ORDERED: NALOXONE HCL 0.4 MG/ML VIAL IV PRN (08:30)
[2021-09-07] MEDS ORDERED: ACCU-CHEK COMFORT CURVE STRIP VI ONE (08:30)
[2021-09-07] MEDS ORDERED: METOCLOPRAMIDE HCL 5MG/ml INJ 2ml VIAL IV PRN (08:30)
[2021-09-07] MEDS ORDERED: MORPHINE SULFATE 4 MG/ML SYR/VIAL IV PRN (08:30)
[2021-09-07] MEDS ORDERED: diphenhdrAMINE HCL 50 MG/1 ML VL IV PRN (08:30)
[2021-09-07] MEDS ORDERED: HYDROmorphone HCL 2 MG/ML VL/or syr IV PRN ×2 (08:30)
[2021-09-07] MEDS: ACETAMINOPHEN IV 1000 MG/100ML (10MG/ML) IV PRN ×2 (13:46→21:48)
[2021-09-07] MEDS ORDERED: DOCU-94 PO (18:24)
[2021-09-07] MEDS ORDERED: HYDR-4902 PO (18:24)
[2021-09-07] MEDS ORDERED: IBUP800T27 PO (18:24)
[2021-09-08] VITALS (12 sets, daily range): BP systolic 90–112; BP diastolic 43–62
[2021-09-08] MEDS ORDERED: KETOROLAC TROMETH 30 MG/ML 1ML VIAL IV ONE (03:15)
[2021-09-08] MEDS: LACTATED RINGER'S 1,000 ML IV SCH (04:45)
[2021-09-08] MEDS: ACETAMINOPHEN IV 1000 MG/100ML (10MG/ML) IV PRN (05:48)
[2021-09-08] MEDS ORDERED: HYDROcodone-ACET 5/325MG TAB PO PRN (06:45)
[2021-09-08] MEDS: DOCUSATE CALCIUM 240 MG CAP PO SCH ×2 (10:49→21:50)
[2021-09-08] MEDS: SIMETHICONE 80 MG CHEWABLE TABLET PO SCH ×3 (10:49→21:50)
[2021-09-08] MEDS: DOCUSATE SOD 100 MG CAP PO SCH ×2 (10:50→21:50)
[2021-09-08] MEDS: IBUPROFEN 800 MG TAB PO PRN ×2 (10:50→21:50)
[2021-09-08] MEDS: HYDROcodone-ACET 5/325MG TAB PO PRN (14:31)
[2021-09-09 03:00] VITALS: BP 99/58
[2021-09-09] MEDS: HYDROcodone-ACET 5/325MG TAB PO PRN (04:31)
[2021-09-09] MEDS: SIMETHICONE 80 MG CHEWABLE TABLET PO SCH (05:55)
[2021-09-09 07:00] VITALS: BP 96/54
[2021-09-09] MEDS: IBUPROFEN 800 MG TAB PO PRN (10:23)
== END 2021-09-09 11:10 | disposition home or self-care (01) | DRG 540 ==
LOC: LDRP 04:35
PROVIDERS: ADMIT Obstetrics & Gynecology; ATTEND Obstetrics & Gynecology
PROC: 10D00Z1 Extraction of Products of Conception, Low, Open Approach (ICD-10-PCS; principal; 2021-09-07 07:15)
DX: O34.219 Maternal care for unspecified type scar from previous cesarean delivery (principal); Z37.0 Single live birth; Z3A.39 39 weeks gestation of pregnancy
CPT/HCPCS: 36415; 59025; 80053; 80307; 81001; 81002; 82962; 85025; 85610; 85730; 86592; 86850; 86900; 86901; 94760; 94762; 96360; 96361; 96366; G0378; J0131; J0690; J1885; J2250; J2405; J2590

== ENCOUNTER 2022-10-10 11:49 | Emergency (ER) | payer MEDICAID ==
[~2022-10-10] VITALS: Ht 152.4 cm; Wt 57.6 kg
[~2022-10-10 11:49] MED LIST changes: +DOCU-94 PO; +HYDR-4902 PO; +IBUP-1456 PO
[2022-10-10] MEDS ORDERED: ONDANSETRON HCL 4 MG/2 ML VIAL IV ONE (12:15)
[2022-10-10] MEDS ORDERED: SODIUM CHLORIDE 0.9% 1,000 ML IV ONE (12:30)
[2022-10-10 12:31] LABS: Urine Bacteria NONE SEEN /hpf (None Seen); Urine Blood Negative /uL (Negative); Urine Clarity HAZY (Clear); Urine Color Yellow (Yellow); Urine Mucus FEW (None Seen); Urine Protein, UAD TRACE (Negative); Urine Specific Gravity 1.031 (1.001-1.035); Urine Urobilinogen Normal (Negative); Urine WBC 1 /hpf (0 - 5)
[2022-10-10] MEDS ORDERED: IOHEXOL 300 MG/ML 100ML BOTTLE IJ ONE (12:52)
[2022-10-10 13:06] LABS: Amphetamine Screen, Urine Neg (NEGATIVE)
[2022-10-10 13:07] LABS: Barbiturate Scree,Urine Neg (NEGATIVE); Benzodiazephine Screen, Urine Neg (NEGATIVE); Cannabinoid Screen, Urine Pos (NEGATIVE); Cocaine Screen, Urine Neg (NEGATIVE); Opiate Scree,Urine Neg (NEGATIVE); Phencyclidine Screen, Urine Neg (NEGATIVE)
[2022-10-10 13:12] LABS: Basophils # (auto) 0 10 ^3/uL (0-0.2); Basophils % (auto) 0.1 % (0.0-2.0); Eosinophils # (auto) 0.3 10 ^3/uL (0-0.8); Eosinophils % (auto) 2.3 % (0.0-7.0); Hemoglobin 13.9 g/dL (12.2-16.2); Lymphocytes # (auto) 1.6 10 ^3/uL (0.4-5.4); Lymphocytes % (auto) 11.6 % (10.0-50.0); Mean Corpuscular Hgb Conc. 33.1 g/dL (32.0-36.0); Mean Corpuscular Volume 90.5 fL (80.0-100.0); Monocytes # (auto) 0.9 10 ^3/uL (0-1.3); Monocytes % (auto) 6.4 % (0.0-12.0); Neutrophils # (auto) 10.8 10 ^3/uL (1.6-8.6); Neutrophils % (auto) 79.6 % (37.0-80.0); Nucleated Red Blood Cells % 0.1 %; Red Blood Cells 4.65 10^6/uL (4.0-5.20); Red Cell Distribution Width 12.5 % (11.8-14.3); White Blood Cell 13.6 10^3/uL (4.4-10.8)
[2022-10-10 13:18] LABS: Alanine Aminotransferase 15 U/L (7-40); Albumin 4.7 g/dL (3.2-4.8); Alkaline Phosphatase 101 U/L (46-116); Anion Gap 8.8 (5-15); Aspartate Aminotransferase 15 U/L (13-40); BUN/Creatinine Ratio 14.7 (10.0-20.0); Blood Urea Nitrogen 10 mg/dL (9-23); Calcium 9.3 mg/dL (8.5-10.1); Carbon Dioxide 23.2 mmol/L (20-30); Chloride 104 mmol/L (98-107); Glucose 82 mg/dL (74-106); Lipase 44 U/L (12-53); Potassium 3.9 mmol/L (3.5-5.1); Sodium 136 mmol/L (136-145)
[2022-10-10 13:19] LABS: Bilirubin, Total 1.2 mg/dL (0.2-1.0); Total Protein 7.7 g/dL (5.7-8.2)
[2022-10-10] MEDS ORDERED: CIPR-173 PO (15:26)
[2022-10-10] MEDS ORDERED: ZOFR4T PO (15:26)
[2022-10-10 15:40] VITALS: BP 118/74; PULSE 83; RESP 16; O2SAT 97
== END 2022-10-10 15:47 | disposition home or self-care (01) ==
LOC: ER 11:49
DX: K52.9 Noninfective gastroenteritis and colitis, unspecified (principal); R10.2 Pelvic and perineal pain; R11.2 Nausea with vomiting, unspecified; R10.30 Lower abdominal pain, unspecified; F12.90 Cannabis use, unspecified, uncomplicated; Z79.899 Other long term (current) drug therapy; Z98.890 Other specified postprocedural states; Z87.442 Personal history of urinary calculi
CPT/HCPCS: 36415; 74177; 80053; 80307; 81001; 81025; 83605; 83690; 84702; 85025; 96361; 96374; 99285; J2405; J7030; Q9967